=== PATIENT | female | born 1995 | race African-American/Black ===

== ENCOUNTER 2018-02-12 20:31 | Emergency (ER) | payer OTHER ==
[~2018-02-12] VITALS: Ht 160 cm; Wt 51.7 kg
[2018-02-12 20:50] VITALS: BP 110/76
--- NOTE | 2018-02-12 21:13 | Emergency Room Report ---
History of Present Illness General Chief Complaint: Abdominal Pain Source: Patient Present Illness HPI Patient is a 23-year-old female who presented after increased abdominal discomfort in the left lower quadrant. Patient ports of increased sharp pain. This did not radiate. Patient had a episode of bloody stools. The patient states is currently improved. She has not been vomiting currently but did report vomiting 2 days ago. Patient had no recent antibiotic use. Patient had not previously been have some reported bloody stools. Patient stated this is normalized. The patient denies any fever. Allergies: Coded Allergies: PENICILLINS (Verified Allergy, Unknown, 02/12/18) Patient History Past Medical History: see triage record Last Menstrual Period: 2 weeks ago Now: No Reviewed Nursing Documentation: PMH: Agreed; PSxH: Agreed Nursing Documentation-PMH Past Medical History: No Stated History Review of Systems All Other Systems: negative except mentioned in HPI Physical Exam Vital Signs Date Time Temp Pulse Resp B/P (MAP) Pulse Ox O2 Delivery O2 Flow Rate FiO2 02/12/18 20:46 98.4 82 16 110/76 98 Room Air 98.4 Sp02 EP Interpretation: reviewed, normal General Appearance: normal inspection, well appearing, no apparent distress, alert, GCS 15 Head: atraumatic ENT: normal ENT inspection, hearing grossly normal, normal voice Neck: normal inspection, full range of motion, supple, no bony tend Respiratory: normal inspection, lungs clear, normal breath sounds, no respiratory distress, no retraction, no wheezing Cardiovascular #1: regular rate, rhythm, no edema Gastrointestinal: normal inspection, normal bowel sounds, non tender, soft, no guarding, no hernia Genitourinary: no CVA tenderness Musculoskeletal: normal inspection, back normal, normal range of motion Neurologic: normal inspection, alert, oriented x3, responsive, dry cleaning checker III-XII nml as tested, DTRs symmetric, speech normal Psychiatric: normal inspection, judgement/insight normal, mood/affect normal Skin: normal inspection, normal color, no rash Medical Decision Making Diagnostic Impression: Primary Impression: Abdominal pain ER Course Patient presented for abdominal pain. Differential diagnoses included ischemic bowel, appendicitis, perforated viscus, abdominal aortic aneurysm, inferior myocardial infarction, viral gastroenteritis. Because of complexity of patient' s case laboratory testing and imaging studies were ordered. The patient was noted to have the adequate hemoglobin. Patient was noted to have have no episodes of emesis in the emergency department. Patient was advised follow-up with gastroenterology for further evaluation of rectal bleeding which may be related to hemorrhoidal bleeding. Patient was advised to return if she began having recurring bleeding or dizziness or other concerns... Labs Test 02/12/18 21:00 White Blood Count 7.2 K/UL (4.8-10.8) Red Blood Count 4.72 M/UL (4.20-5.40) Hemoglobin 12.3 G/DL (12.0-16.0) Hematocrit 37.9 % (37.0-47.0) Mean Corpuscular Volume 80 FL (80-99) Mean Corpuscular Hemoglobin 26.0 PG (27.0-31.0) Mean Corpuscular Hemoglobin Concent 32.4 G/DL (32.0-36.0) Red Cell Distribution Width 11.5 % (11.6-14.8) Platelet Count 245 K/UL (150-450) Mean Platelet Volume 6.5 FL (6.5-10.1) Neutrophils (%) (Auto) 38.0 % (45.0-75.0) Lymphocytes (%) (Auto) 49.5 % (20.0-45.0) Monocytes (%) (Auto) 7.7 % (1.0-10.0) Eosinophils (%) (Auto) 3.1 % (0.0-3.0) Basophils (%) (Auto) 1.8 % (0.0-2.0) Prothrombin Time 11.2 SEC (9.30-11.50) Prothromb Time International Ratio 1.1 (0.9-1.1) Activated Partial Thromboplast Time 27 SEC (23-33) Urine Color Pale yellow Urine Appearance Clear Urine pH 6.5 (4.5-8.0) Urine Specific [place] 1.010 (1.005-1.035) Urine Protein Negative (NEGATIVE) Urine Glucose (UA) Negative (NEGATIVE) Urine Ketones Negative (NEGATIVE) Urine Occult Blood 1+ (NEGATIVE) Urine Nitrite Negative (NEGATIVE) Urine Bilirubin Negative (NEGATIVE) Urine Urobilinogen Normal MG/DL (0.0-1.0) Urine Leukocyte Esterase Negative (NEGATIVE) Urine RBC 0-2 /HPF (0 - 2) Urine WBC 0-2 /HPF (0 - 2) Urine Squamous Epithelial Cells Few /LPF (NONE/OCC) Urine Bacteria Few /HPF (NONE) Urine HCG, Qualitative Negative (NEGATIVE) Sodium Level 139 MMOL/L (136-145) Potassium Level 3.3 MMOL/L (3.5-5.1) Chloride Level 103 MMOL/L (98-107) Carbon Dioxide Level 29 MMOL/L (21-32) Anion Gap 7 mmol/L (5-15) Blood Urea Nitrogen 13 mg/dL (7-18) Creatinine 0.8 MG/DL (0.55-1.30) Estimat Glomerular Filtration Rate > 60 mL/min (>60) Glucose Level 82 MG/DL (74-106) Calcium Level 9.1 MG/DL (8.5-10.1) Total Bilirubin 0.6 MG/DL (0.2-1.0) Aspartate Amino Transf (AST/SGOT) 20 U/L (15-37) Alanine Aminotransferase (ALT/SGPT) 23 U/L (12-78) Alkaline Phosphatase 46 U/L (46-116) Total Protein 7.9 G/DL (6.4-8.2) Albumin 4.4 G/DL (3.4-5.0) Globulin 3.5 g/dL Albumin/Globulin Ratio 1.3 (1.0-2.7) Lipase 187 U/L (73-393) Last Vital Signs Date Time Temp Pulse Resp B/P (MAP) Pulse Ox O2 Delivery O2 Flow Rate FiO2 02/12/18 20:50 98.4 16 110/76 98 Room Air 98.4 02/12/18 20:46 82 Status: improved Disposition: HOME, SELF-CARE Condition: Stable Scripts Dicyclomine Hcl* (DICYCLOMINE HCL*) 10 Mg Capsule 10 MG PO QID, #20 CAP Prov: Brain Hogan MD 02/12/18 Ciprofloxacin Hcl* (CIPROFLOXACIN HCL*) 500 Mg Tablet 500 MG ORAL Q12H, #14 TAB 0 Refills Prov: Brain Hogan MD 02/12/18 Brain Hogan MD Feb 12, 2018 21:13
[2018-02-12] MEDS ORDERED: Sodium Chloride 500ML 500 ML IV ONE (22:01)
[2018-02-12 22:08] LABS: BASOPHILS % (AUTO) 1.8 % (0.0-2.0); EOSINOPHILS % (AUTO) 3.1 % (0.0-3.0); HEMATOCRIT 37.9 % (37.0-47.0); HEMOGLOBIN 12.3 G/DL (12.0-16.0); LYMPHOCYTES % (AUTO) 49.5 % (20.0-45.0); MEAN CORPUSCULAR VOLUME 80 FL (80-99); MONOCYTES % (AUTO) 7.7 % (1.0-10.0); PLATELET COUNT 245 K/UL (150-450); RED BLOOD COUNT 4.72 M/UL (4.20-5.40); RED CELL DISTRIBUTION WIDTH 11.5 % (11.6-14.8); WHITE BLOOD COUNT 7.2 K/UL (4.8-10.8)
[2018-02-12 22:09] LABS: APPEARANCE,URINE CLEAR; BILIRUBIN, URINE NEGATIVE (NEGATIVE); COLOR,URINE PALE YELLOW; GLUCOSE, URINE (UA) NEGATIVE (NEGATIVE); KETONES,URINE NEGATIVE (NEGATIVE); LEUKOCYTE ESTERASE ,URINE NEGATIVE (NEGATIVE); NITRITE,URINE NEGATIVE (NEGATIVE); PH,URINE 6.5 (4.5-8.0); PROTEIN,URINE NEGATIVE (NEGATIVE); UROBILINOGEN,URINE NORMAL MG/DL (0.0-1.0)
[2018-02-12 22:21] LABS: INR 1.1 (0.9-1.1)
[2018-02-12 22:23] LABS: ANION GAP 7 mmol/L (5-15); BLOOD UREA NITROGEN 13 mg/dL (7-18); CALCIUM 9.1 MG/DL (8.5-10.1); CARBON DIOXIDE 29 MMOL/L (21-32); CHLORIDE 103 MMOL/L (98-107); CREATININE 0.8 MG/DL (0.55-1.30); POTASSIUM 3.3 MMOL/L (3.5-5.1); SODIUM 139 MMOL/L (136-145)
[2018-02-12 22:27] LABS: ALANINE AMINOTRANSFERASE 23 U/L (12-78); ALBUMIN 4.4 G/DL (3.4-5.0); ALBUMIN/GLOBULIN RATIO 1.3 (1.0-2.7); ALKALINE PHOSPHATASE 46 U/L (46-116); ASPARTATE AMINO TRANSFERASE 20 U/L (15-37); BILIRUBIN,TOTAL 0.6 MG/DL (0.2-1.0)
[2018-02-12] MEDS ORDERED: DICYCLOMINE HCL10 MG PO (22:39)
[2018-02-12] MEDS ORDERED: CIPROFLOXACIN500 M2 ORAL (22:39)
[2018-02-12] MEDS ORDERED: Dicyclomine HCl 10mg/5ml oral soln ORAL ONE (22:45)
[2018-02-12 23:01] VITALS: BP 102/68
[2018-02-12 23:02] VITALS: BP 110/76
== END 2018-02-12 23:10 | disposition home or self-care (01) ==
LOC: EMR 21:06
DX: R10.32 Left lower quadrant pain (principal); Z88.0 Allergy status to penicillin
CPT/HCPCS: 36415; 80053; 81003; 81025; 83690; 85025; 85610; 85730; 96360; 99283; J8499

== ENCOUNTER 2018-03-06 20:21 | Emergency (ER) | payer OTHER ==
[~2018-03-06] VITALS: Ht 162.6 cm; Wt 51.7 kg
[~2018-03-06 20:21] MED LIST: CIPROFLOXACIN500 M2 ORAL; DICYCLOMINE HCL10 MG PO
[2018-03-06 20:35] VITALS: BP 112/89
[2018-03-06] MEDS ORDERED: PREDNISONE20 MG ORAL (20:56)
[2018-03-06] MEDS ORDERED: PEPCID AC20 M2 PO (20:56)
[2018-03-06] MEDS ORDERED: BENADRYL25 MG ORAL (20:56)
--- NOTE | 2018-03-06 20:59 | Emergency Room Report ---
History of Present Illness General Chief Complaint: Allergic Reaction Source: Patient Present Illness HPI Patient presents with reports that she feels she is having an allergic reaction Patient reports that she has itching of her throat This is usually what she has before her full-blown allergy Patient also had a small red area just medial to the left upper nasal area She reports that she has makeup on it right now and therefore does not look impressive Denies any fevers or chills denies any chest pain or shortness of breath Denies any abdominal pain Patient reports that usually the perfume or other chemicals at work trigger her allergy Allergies: Coded Allergies: PENICILLINS (Verified Allergy, Unknown, 03/06/18) Patient History Past Medical History: see triage record Pertinent Family History: none Last Menstrual Period: 02/27/18 Now: No Reviewed Nursing Documentation: PMH: Agreed; PSxH: Agreed Nursing Documentation-PMH Past Medical History: No Stated History Review of Systems All Other Systems: negative except mentioned in HPI Physical Exam Vital Signs Date Time Temp Pulse Resp B/P (MAP) Pulse Ox O2 Delivery O2 Flow Rate FiO2 03/06/18 20:29 98.1 83 16 112/89 100 Room Air 98.1 Sp02 EP Interpretation: reviewed, normal General Appearance: well appearing, no apparent distress Head: normocephalic, atraumatic Eyes: bilateral eye PERRL, bilateral eye EOMI ENT: hearing grossly normal, normal pharynx, TMs + canals normal, uvula midline Neck: full range of motion, supple, no meningismus, no bony tend Respiratory: lungs clear, normal breath sounds, no rhonchi, no respiratory distress, no retraction, no accessory muscle use Cardiovascular #1: normal peripheral pulses, regular rate, rhythm, no edema, no gallop, no JVD, no murmur Gastrointestinal: normal bowel sounds, non tender, soft, no mass, no organomegaly, non-distended, no guarding, no hernia, no pulsatile mass, no rebound Musculoskeletal: normal inspection Neurologic: oriented x3, responsive, family nurse III-XII nml as tested, motor strength/ tone normal, sensory intact Psychiatric: mood/affect normal Skin: normal color, no rash, warm/dry, palpation normal Lymphatic: normal inspection, no adenopathy Medical Decision Making Diagnostic Impression: Primary Impression: Allergic reaction ER Course I cannot appreciate any obvious erythema or lesions Patient reports that she had taken a Benadryl earlier today also reports that she has makeup covering some of the raised erythema on the left facial region medial nose just lateral to the left eye Lung sounds are clear patient is provided with medications here in the ER symptomatically And will be placed on medications for home Patient reports that she has an record center specialist coming up in the next 2 weeks Last Vital Signs Date Time Temp Pulse Resp B/P (MAP) Pulse Ox O2 Delivery O2 Flow Rate FiO2 03/06/18 20:29 98.1 83 16 112/89 100 Room Air 98.1 Status: improved Disposition: HOME, SELF-CARE Condition: Stable Scripts Famotidine (PEPCID AC) 20 Mg Tablet 20 MG PO DAILY, #10 TAB Prov: João Montana DO 03/06/18 Diphenhydramine Hcl* (BENADRYL*) 25 Mg Capsule 25 MG ORAL Q6H PRN for Itching, #20 CAP Prov: João Montana DO 03/06/18 Prednisone* (PREDNISONE*) 20 Mg Tablet 20 MG ORAL BID, #8 TAB Prov: João Montana DO 03/06/18 Patient Instructions: Allergies Additional Instructions: Patient is provided with the discharge instructions notified to follow up with primary doctor in the next 2-3 days otherwise return to the er with any worsening symptoms. Please note that this report is being documented using [employer] technology. This can lead to erroneous entry secondary to incorrect interpretation by the dictating instrument. João Montana DO Mar 06, 2018 20:59
[2018-03-06 21:10] VITALS: BP 0/0
== END 2018-03-06 21:10 | disposition home or self-care (01) ==
LOC: EMR 20:56
DX: T78.40XA Allergy, unspecified, initial encounter (principal); Z88.0 Allergy status to penicillin
CPT/HCPCS: 99284; J7512

== ENCOUNTER 2018-04-11 18:58 | Emergency (ER) | payer OTHER ==
[~2018-04-11] VITALS: Ht 160 cm; Wt 49.9 kg
[~2018-04-11 18:58] MED LIST changes: +BENADRYL25 MG ORAL; +PEPCID AC20 M2 PO; +PREDNISONE20 MG ORAL
[2018-04-11 19:20] VITALS: BP 105/58
--- NOTE | 2018-04-11 19:26 | Emergency Room Report ---
History of Present Illness General Chief Complaint: Animal Bite Source: Patient Present Illness HPI Patient's dog bit her R hand today. Not break skin, but scraped and bruised. Puppy from pet store with one series of shots. Pain rated "minimal" not give number. Tetanus < 10 years. No numbness. Not . No NVD. No URI sy. R handed. No major medical problems. Friends told her to come get evaluated. 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 Period: last week Reviewed Nursing Documentation: PMH: Agreed; PSxH: Agreed Nursing Documentation-PMH Past Medical History: No Stated History Review of Systems Constitutional: Denies: fever Respiratory: Reports: see HPI Cardiovascular: Denies: edema Gastrointestinal: Denies: nausea Genitourinary: Reports: see HPI; Denies: dysuria Musculoskeletal: Reports: see HPI Skin: Reports: see HPI Hematologic/Lymphatic: Reports: see HPI Physical Exam Vital Signs Date Time Temp Pulse Resp B/P (MAP) Pulse Ox O2 Delivery O2 Flow Rate FiO2 04/11/18 19:13 98.1 78 16 107/55 99 Room Air 98.1 Sp02 EP Interpretation: reviewed, normal General Appearance: well appearing, no apparent distress Head: normocephalic, atraumatic Eyes: bilateral eye normal inspection, bilateral eye PERRL ENT: hearing grossly normal, normal voice, moist mucus membranes Neck: full range of motion, supple Respiratory: no respiratory distress, speaking full sentences Cardiovascular #1: regular rate, rhythm, edema Cardiovascular #2: 2+ radial (R) - good cap fill Gastrointestinal: normal inspection Musculoskeletal: gait/station normal, normal range of motion, swelling, other - ROM of fingers full Neurologic: alert, normal gait, grossly normal - distal neuro normal Psychiatric: mood/affect normal Skin: abrasions, hematoma - R index metacarpal Medical Decision Making Diagnostic Impression: Primary Impression: Dog bite of right hand Qualified Codes: S61.451A - Open bite of right hand, initial encounter; W54.0XXA - Bitten by dog, initial encounter ER Course Patient post domestic dog bite R hand. Diagnosis is clinical. No risk for rabies. Not break skin and no indication for systemic antibiotics at this time. Given bacitracin. Patient declines pain medicine. Patient stable for outpatient observation and treatment. Last Vital Signs Date Time Temp Pulse Resp B/P (MAP) Pulse Ox O2 Delivery O2 Flow Rate FiO2 04/11/18 19:13 98.1 78 16 107/55 99 Room Air 98.1 Status: improved Disposition: HOME, SELF-CARE Condition: Stable Scripts Bacitracin (Bacitracin) 28.4 Gm Oint...g. 1 APPLIC TOPIC BID, #10 GM Prov: Nabeel Sexton M.D. 04/11/18 Nabeel Sexton M.D. Apr 11, 2018 19:26
[2018-04-11] MEDS ORDERED: BACITRACIN15 GM TOPIC (19:28)
[2018-04-11] MEDS ORDERED: Bacitracin Oint UD TOPIC ONE (19:30)
[2018-04-11 19:45] VITALS: BP 107/55
== END 2018-04-11 19:45 | disposition home or self-care (01) ==
LOC: EMR 19:29
DX: S60.571A Other superficial bite of hand of right hand, initial encounter (principal); W54.0XXA Bitten by dog, initial encounter; Y93.89 Activity, other specified; Y92.89 Other specified places as the place of occurrence of the external cause; Z88.0 Allergy status to penicillin
CPT/HCPCS: 99282

== ENCOUNTER 2018-08-31 19:52 | Emergency (ER) | payer OTHER ==
[~2018-08-31] VITALS: Ht 162.6 cm; Wt 51.3 kg
[~2018-08-31 19:52] MED LIST changes: +BACITRACIN15 GM TOPIC
[2018-08-31 20:27] VITALS: BP 107/73
--- NOTE | 2018-08-31 20:41 | Emergency Room Report ---
History of Present Illness General Chief Complaint: Flu Like Symptoms Source: Patient Present Illness Allergies: Coded Allergies: PENICILLINS (Verified Allergy, Unknown, 08/31/18) Patient History Past Medical History: see triage record Past Surgical History: none Pertinent Family History: none Last Menstrual Period: [id number] Now: No Reviewed Nursing Documentation: PMH: Agreed; PSxH: Agreed Nursing Documentation-PMH Past Medical History: No Stated History Review of Systems All Other Systems: negative except mentioned in HPI Physical Exam Vital Signs Date Time Temp Pulse Resp B/P (MAP) Pulse Ox O2 Delivery O2 Flow Rate FiO2 08/31/18 20:16 98.2 92 16 107/73 98 Room Air Sp02 EP Interpretation: reviewed, normal General Appearance: no apparent distress, alert, GCS 15, non-toxic Head: normocephalic, atraumatic Eyes: bilateral eye normal inspection, bilateral eye PERRL ENT: hearing grossly normal, normal voice Neck: full range of motion Respiratory: chest non-tender, lungs clear, normal breath sounds, no rhonchi, no respiratory distress, no accessory muscle use, speaking full sentences, wheezing Cardiovascular #1: regular rate, rhythm Musculoskeletal: back normal, gait/station normal, normal range of motion, non- tender Neurologic: alert, oriented x3, responsive, motor strength/tone normal, sensory intact, speech normal, grossly normal Psychiatric: judgement/insight normal Skin: normal color, no rash, warm/dry, well hydrated Lymphatic: no adenopathy Medical Decision Making PA Attestation Dr. Hogan is my supervising Physician whom patient management has been discussed with. Diagnostic Impression: Primary Impression: Bronchitis ER Course 32-year-old male presents to the emergency department complaining of 10 out of 10 in severity left-sided migraine 4 days. She reports history of migraines and states that the pain that he is feeling today is consistent with how he his migraines typically feel. Patient states that medication he was prescribed is not providing relief. Patient does not know the name of the medication that he was prescribed. Patient has a MRI canceled for this Friday. He denies trauma or fall. He denies sudden onset. He reports some photophobia denies hyperacusis, nausea, vomiting. Denies fevers, chills neck pain or stiffness. Ddx considered but are not limited to URI, pneumonia, PE, strep pharyngitis, meningitis, bronchitis Vital signs: Pt.is afebrile VS are WNL H&PE are most consistent with bronchitis ORDERS: none required at this time, the diagnosis is clinical ED INTERVENTIONS: -Albuterol HHN DISCHARGE: At this time pt. is stable for d/c to home. Will provide printed patient care instructions, and any necessary prescriptions. Care plan and follow up instructions have been discussed with the patient prior to discharge. Last Vital Signs Date Time Temp Pulse Resp B/P (MAP) Pulse Ox O2 Delivery O2 Flow Rate FiO2 08/31/18 20:16 98.2 92 16 107/73 98 Room Air Disposition: HOME, SELF-CARE Condition: Stable Departure Forms: Return to Work Return to Work Date: Sep 03, 2018 Work Restrictions: None Other Restrictions: May return Sooner if Symptoms have resolved. Return to Full Activity: Sep 03, 2018 Patient Instructions: Acute Bronchitis, [id number] Additional Instructions: Take medications as directed. Follow up with a Primary Care Provider in 3-5 days, even if your symptoms have resolved. --Please review list of primary care clinics, if you do not already have a primary care provider Return sooner to ED if new symptoms occur, or current symptoms become worse. Do not drink alcohol, drive, or operate heavy machinery while taking Cough Syrup as this may cause drowsiness. - Please note that this Emergency Department Report was dictated using [employer] erector and serv[employer] technology software, occasionally this can lead to erroneous entry secondary to interpretation by the dictation equipment. Roxy Montiel Aug 31, 2018 20:41
[2018-08-31] MEDS ORDERED: Albuterol ud Inhalation HHN ONE (20:45)
[2018-08-31] MEDS ORDERED: Promethazine/Codeine 5ml UD ORAL ONE (20:45)
[2018-08-31 21:15] VITALS: BP 113/61
[2018-08-31] MEDS ORDERED: ALBUTEROL SULF8.5 GM INH (21:22)
[2018-08-31] MEDS ORDERED: TESSALON PERLE100 MG ORAL (21:22)
[2018-08-31] MEDS ORDERED: PROMETHAZINE-C118 M1 ORAL (21:22)
[2018-08-31] MEDS ORDERED: PREDNISONE20 MG ORAL (21:22)
== END 2018-08-31 21:15 | disposition home or self-care (01) ==
LOC: EMR 20:42
DX: J40 Bronchitis, not specified as acute or chronic (principal); Z88.0 Allergy status to penicillin
CPT/HCPCS: 94640; 94664; 99284

== ENCOUNTER 2018-09-02 14:24 | Emergency (ER) | payer OTHER ==
[~2018-09-02] VITALS: Ht 162.6 cm; Wt 51.3 kg
[~2018-09-02 14:24] MED LIST changes: +ALBUTEROL SULF8.5 GM INH; +PROMETHAZINE-C118 M1 ORAL; +TESSALON PERLE100 MG ORAL
[2018-09-02 14:45] VITALS: BP 110/64
--- NOTE | 2018-09-02 14:45 | NUR ---
ED Nurse Note: Pt states that she took prednisone at 11am and she developed muscle stiffness at 11pm. denies any pain or stiffness at this time. AOx4, VSS gaurav. Will cont to monitor.
--- NOTE | 2018-09-02 14:47 | Emergency Room Report ---
History of Present Illness General Chief Complaint: Allergic Reaction Source: Patient (Roxy Montiel) Present Illness HPI 23-year-old female presents to the emergency department complaining of muscle stiffness in the neck after taking prednisone this morning on 11 AM. Patient states that now her symptoms have resolved however she is not sure o other she should continue the medication or not. Pt. denies fevers, chills or swollen tender lymph nodes. Denies skin lesions/rashes. Denies Denies swelling of the lips, tongue , throat or airway. Denies wheezing, or shortness of breath. Denies recent travel, recent illness or ill contacts. denies blisters, oral lesions, or sloughing of the skin. She denies pain at this time. (Roxy Montiel) Allergies: Coded Allergies: PENICILLINS (Verified Allergy, Unknown, 08/31/18) Patient History Past Medical History: see triage record Past Surgical History: none Pertinent Family History: none Last Menstrual Period: 08/25/18 : 0 Para: 0 Reviewed Nursing Documentation: PMH: Agreed; PSxH: Agreed (Roxy Montiel) Nursing Documentation-PMH Past Medical History: No Stated History (Roxy Montiel) Review of Systems All Other Systems: negative except mentioned in HPI (Roxy Montiel) Physical Exam Vital Signs Date Time Temp Pulse Resp B/P (MAP) Pulse Ox O2 Delivery O2 Flow Rate FiO2 09/02/18 14:33 98.1 110 20 112/63 98 Room Air Sp02 EP Interpretation: reviewed, normal General Appearance: no apparent distress, alert, GCS 15, non-toxic Head: normocephalic, atraumatic Eyes: bilateral eye normal inspection, bilateral eye PERRL ENT: hearing grossly normal, normal voice Neck: full range of motion, no meningismus, no bony tend Respiratory: lungs clear, normal breath sounds, speaking full sentences Cardiovascular #1: regular rate, rhythm, tachycardia Musculoskeletal: back normal, gait/station normal, normal range of motion, non- tender Neurologic: alert, oriented x3, responsive, motor strength/tone normal, sensory intact, normal gait, speech normal, grossly normal Psychiatric: judgement/insight normal Skin: normal color, no rash, warm/dry, well hydrated (Roxy Montiel) Medical Decision Making PA Attestation Dr. Sexton is my supervising Physician whom patient management has been discussed with. (Roxy Montiel) Diagnostic Impression: Primary Impression: Medication side effect ER Course 23-year-old female presents to the emergency department complaining of muscle stiffness in the neck after taking prednisone this morning on 11 AM. Patient states that now her symptoms have resolved however she is not sure o other she should continue the medication or not. Pt. denies fevers, chills or swollen tender lymph nodes. Denies skin lesions/rashes. Denies Denies swelling of the lips, tongue , throat or airway. Denies wheezing, or shortness of breath. Denies recent travel, recent illness or ill contacts. denies blisters, oral lesions, or sloughing of the skin. She denies pain at this time. Ddx considered but are not limited to cellulitis, allergic reaction, angio edema , abscess Vital signs: Tachycardic otherwise remaining VS are WNL, pt. is afebrile H&PE are most consistent with probable medication side effect. No evidence of acute airway compromise, impending airway compromise or anaphylaxis. ORDERS: none required at this time, the diagnosis is clinical ED INTERVENTIONS: - None at this time. DISCHARGE: At this time pt. is stable for d/c to home. Will provide printed patient care instructions, and any necessary prescriptions. Care plan and follow up instructions have been discussed with the patient prior to discharge. (Roxy Montiel) Last Vital Signs Date Time Temp Pulse Resp B/P (MAP) Pulse Ox O2 Delivery O2 Flow Rate FiO2 09/02/18 14:33 98.1 110 20 112/63 98 Room Air (Roxy Montiel) Last Vital Signs Date Time Temp Pulse Resp B/P (MAP) Pulse Ox O2 Delivery O2 Flow Rate FiO2 09/02/18 15:05 98.1 100 20 110/64 97 Room Air (Nabeel Sexton MD) Disposition: HOME, SELF-CARE Condition: Stable Patient Instructions: Drug Allergy Additional Instructions: Take medications as directed BUT DISCONTINUE PREDNISONE AND TESALON PERLES Follow up with a Primary Care Provider in 3-5 days, even if your symptoms have resolved. --Please review list of primary care clinics, if you do not already have a primary care provider Return sooner to ED if new symptoms occur, or current symptoms become worse. - Please note that this Emergency Department Report was dictated using [employer] technology software, occasionally this can lead to erroneous entry secondary to interpretation by the dictation equipment. Roxy Montiel Sep 02, 2018 14:46 Nabeel Sexton MD Sep 05, 2018 02:02
[2018-09-02 15:05] VITALS: BP 110/64
--- NOTE | 2018-09-02 15:05 | NUR ---
ED Nurse Note: Pt is clear to be discharged by ERMD. Discharge paper and prescription given, pt verbalized understanding of discharge instruction. AOx4, VSS. Wristband removed. Pt ambulated out with steady gait with all belongings.
== END 2018-09-02 15:05 | disposition home or self-care (01) ==
LOC: EMR 14:52
DX: T78.40XA Allergy, unspecified, initial encounter (principal); T50.995A Adverse effect of other drugs, medicaments and biological substances, initial encounter; Y92.9 Unspecified place or not applicable; Z88.0 Allergy status to penicillin
CPT/HCPCS: 99282

== ENCOUNTER 2018-11-02 19:25 | Emergency (ER) | payer OTHER ==
[~2018-11-02] VITALS: Ht 162.6 cm; Wt 51.3 kg
[2018-11-02] MEDS ORDERED: NKM (19:31)
--- NOTE | 2018-11-02 19:47 | NUR ---
ED Nurse Note: R earache x 4 days, pain 6/10 gaurav, clear discharge noted. Aox4, VSS. Will cont to monitor.
[2018-11-02 19:48] VITALS: BP 120/75
[2018-11-02] MEDS ORDERED: CORTISPORIN EAR10 ML RIGHT EAR (20:12)
[2018-11-02] MEDS ORDERED: BACITRACIN-P28.35 GM TP (20:12)
--- NOTE | 2018-11-02 20:12 | Emergency Room Report ---
History of Present Illness General Chief Complaint: Earache Source: Patient Present Illness HPI 23-year-old female patient presents ER complaint of right-sided earache for the past 4 days. Reports bump on the outside of her ear, Reports painful to touch. Also complaining of earache symptoms. Denies hearing loss. Denies tinnitus. Denies ear drainage. Luis Fernando recent swimming. Denies fever, chest pain, SOB. Allergies: Coded Allergies: PENICILLINS (Verified Allergy, Unknown, 08/31/18) Patient History Past Medical History: see triage record Last Menstrual Period: Now: No : 0 Para: 0 Reviewed Nursing Documentation: PMH: Agreed; PSxH: Agreed Nursing Documentation-PMH Past Medical History: No History, Except For Review of Systems All Other Systems: negative except mentioned in HPI Physical Exam Vital Signs Date Time Temp Pulse Resp B/P (MAP) Pulse Ox O2 Delivery O2 Flow Rate FiO2 11/02/18 19:27 98.4 97 18 117/73 98 Room Air Sp02 EP Interpretation: reviewed, normal General Appearance: well appearing, no apparent distress, alert, GCS 15, non- toxic Head: normocephalic, atraumatic Eyes: bilateral eye normal inspection, bilateral eye PERRL ENT: hearing grossly normal, normal pharynx, no angioedema, normal voice, TMs + canals normal, uvula midline, moist mucus membranes, other - Right ear: Mild erythema in ear canal, pain with ear pulling, TM intact, no effusion, no TM erythema or edema Neck: full range of motion, no meningismus, no bony tend Respiratory: lungs clear, normal breath sounds, no rhonchi, no respiratory distress, no accessory muscle use, no wheezing, speaking full sentences Cardiovascular #1: regular rate, rhythm, no edema Cardiovascular #2: 2+ radial (R), 2+ radial (L) Musculoskeletal: back normal, digits/nails normal, gait/station normal, normal range of motion, non-tender Neurologic: alert, oriented x3, responsive, risk and insurance manager III-XII nml as tested, motor strength/tone normal, sensory intact Psychiatric: mood/affect normal Skin: abrasions - Small abrasion in auricle of right ear, no surrounding erythema or edema Medical Decision Making PA Attestation Dr. Martinez is my supervising Physician whom patient management has been discussed with. Diagnostic Impression: Primary Impression: Otitis externa Additional Impression: Abrasion ER Course Pt presents to ED c/o ear pain. DDX considered but are not limited to rhinitis, sinusitis, otitis media, otitis externa, cellulitis, mastoiditis, cerumen impaction. Low suspicion for mastoiditis, no swelling or erythema noted posterior to ear, no TTP. VITAL SIGNS are WNL, patient is afebrile. ER COURSE: Exam shows nonerythematous TM without effusion, no rupture, mildly erythematous and edematous ear canal, pain with ear pulling. likely otitis externa. Continue taking medications as previously instructed. Avoid swimming. do not use q-tips. Small abrasion in auricle of ear, no drainage, no surrounding erythema or edema , no abscess requiring drainage. Keep clean and dry. ER precautions given. DISCHARGE: -Rx provided for Neomycin/polmyxin B Rx provided for Bacitracin At this time pt is stable for d/c to home. resting comfortably chest, nontoxic appearing. Patient to take medications as instructed Will provide with patient care instructions and any necessary prescriptions. Care plan and follow-up instructions provided. Patient instructed to follow-up with primary care in 3 - 5 days. Patient provided with list of clinics to establish care if unable to contact current PCP. Patient questions asked and answered. ER precautions given. Patient instructed to return to ER immediately for any new or worsening of symptoms including but not limited to increasing SOB, persistent fever. - Please note that this Emergency Department Report was dictated using [employer] educ[employer] technology software, occasionally this can lead to erroneous entry secondary to interpretation by the dictation equipment. Last Vital Signs Date Time Temp Pulse Resp B/P (MAP) Pulse Ox O2 Delivery O2 Flow Rate FiO2 11/02/18 19:48 98.4 88 19 120/75 98 Room Air Status: improved Disposition: HOME, SELF-CARE Condition: Stable Scripts Bacitracin/Polymyxin B Sulfate (BACITRACIN-POLYMYXIN OINTMENT) 28.35 Gm Oint...g. 1 APPLIC TP BID, #28 GM Prov: Jam Evans 11/02/18 Neomycin/Polymyxin B Sulf/Hc* (CORTISPORIN EAR SOLUTION*) 10 Ml Solution 4 DROP RIGHT EAR QID, #10 ML 0 Refills Prov: Jam Evans 11/02/18 Patient Instructions: Abrasion, [id number], Otitis Externa, [id number] Additional Instructions: Followup with primary care provider in 3 -5 days. Request referral to ENT. Avoid swimming, does not use Q-tips in ear. Take medications as directed. Patient questions asked and answered. ER precautions given, patient instructed to return to ER immediately for any new or worsening of symptoms. Jam Evans Nov 02, 2018 20:12
[2018-11-02 20:19] VITALS: BP 118/72
--- NOTE | 2018-11-02 20:19 | NUR ---
ER DISCHARGE NOTE: Patient is cleared to be discharged per ERMD, pt is aox4, on room air, with stable vital signs. pt was given dc and prescription instructions, pt was able to verbalize understanding, pt id band removed without complications. pt is able to ambulate with steady gait. pt took all belongings.
== END 2018-11-02 20:19 | disposition home or self-care (01) ==
LOC: EMR 20:01
DX: H60.91 Unspecified otitis externa, right ear (principal); S00.411A Abrasion of right ear, initial encounter; X58.XXXA Exposure to other specified factors, initial encounter; Y92.9 Unspecified place or not applicable; Z88.0 Allergy status to penicillin
CPT/HCPCS: 99282

== ENCOUNTER 2020-10-13 09:51 | Emergency (ER) | payer OTHER ==
[~2020-10-13] VITALS: Ht 160 cm; Wt 49.9 kg
[~2020-10-13 09:51] MED LIST changes: +BACITRACIN-P28.35 GM TP; +CORTISPORIN EAR10 ML RIGHT EAR; +NKM
[2020-10-13 10:25] VITALS: BP 130/70
[2020-10-13] MEDS ORDERED: Acetaminophen 500mg (ES) tab ORAL ONE (10:30)
--- NOTE | 2020-10-13 11:10 | Emergency Room Report ---
History of Present Illness General Chief Complaint: Head Injury Source: Patient Present Illness HPI 25-year-old female with no prior medical history presents to the emergency department with chief complaint of scalp pain after hitting her head on a refrigerator door yesterday. Patient states that she was bending over to put some items into her refrigerator and somehow the refrigerator door opened up and hit her. She denies any loss of consciousness, vision changes, nausea, vomiting, diarrhea, difficulty walking, neck pain, back pain, chest pain, shortness of breath, slurred speech, otorrhea, photophobia or any other issues. Denies any recurrent injury. The patient's symptoms were gradual onset, severity was moderate, duration since 1 day. Quality: Aching No alleviating factors. Patient has not tried any medication at home because "I am not into taking meds". Past medical history: Denies Past surgical history: Denies Smoking: Occasional Alcohol use: Occasional Drug use: Denies Review of systems: CONST: No fevers or chills, No night sweats PULMONARY: No productive cough, No shortness of breath CARDIAC: No chest pain, No palpitations GI: No vomiting, No diarrhea , No melena_or_BRBPR : No dysuria, No hematuria, No discharge NEURO: No new_focal_weakness_or_numbness, No confusion, No vision changes 14 point Review of Systems is otherwise negative except per HPI Physical Exam: GENERAL: Awake_alert_ nontoxic, no acute distress Spo2 98% on RA -normal EYES: No nystagmus. No hyphema. No entrapment. Extraocular muscles are intact. Conjunctivae clear. Lids without swelling ENT: No nasal septal hematoma. No deformity. External nose and ear normal_in_appearance. Oropharynx clear. Head_atraumatic, Moist_oral_mucosa NECK: No JVD. No meningismus. No thyromegaly. Supple. Trachea midline. No midline cervical, thoracic, lumbar spinal step-off or deformity. RESP: Normal respiratory effort. Symmetric rise. No stridor. Clear_to_auscultation_No_rales_No_wheezes CARDIAC: Regular rate and regular rhytm. No_significant pedal edema. ABDOMEN: Soft. Nondistended. Nontender_No_rebound_or_guarding. MSK: Normal muscle tone, without rigidity. Extremities without asymmetric deformity or swelling. SKIN: Warm and dry. No visible cyanosis or pallor NEUROLOGIC: Alert, oriented x3. Motor_and_sensation_grossly_intact. No truncal ataxia. Gait_normal. No pronator drift. Negative Romberg. No ataxia. Balanced zoila with smooth turns. Normal bpjynh-sw-[id number] bilaterally. Negative normal rapid alternating movement Psych: Normal mood and affect, normal judgment and insight - COORDINATION OF CARE Case was discussed with: Patient Any imaging that were ordered were interpreted as part of the medical decision making: Medical Decision Making/Plan: Differential diagnosis includes closed head injury, scalp contusion, vs less likely skull fracture, intracranial bleeding, among others. Patient neurologically intact, afebrile, with no abnormal cerebellar signs. CT scans of the head were immediately obtained and showed no evidence of any emergent findings. There was no evidence of any wounds that required repair Pain was controlled with Tylenol. The patient is non-toxic, well appearing and significantly improved with observation and serial exams in the emergency department. The patient is neurologically intact and able to ambulate, no evidence of spinal cord injury. Patient is stable for discharge home and follow up with their regular doctor in 1-2 days. Close head injury precautions were discussed. Instructed patient to avoid vigorous physical activity/reinjury/blunt head trauma to prevent neurologic sequelae, rarely . She verbalizes her understanding. Off work note given x3 days. Allergies: Coded Allergies: PENICILLINS (Verified Allergy, Unknown, 08/31/18) COVID-19 Screening Contact w/high risk pt: No Experienced COVID-19 symptoms?: No COVID-19 Testing performed DISTRIBUTION CENTER ASSISTANT: No Patient History Last Menstrual Period: 09/30/20 Now: No Nursing Documentation-[facility] Past Medical History: No Stated History Physical Exam Vital Signs Date Time Temp Pulse Resp B/P (MAP) Pulse Ox O2 Delivery O2 Flow Rate FiO2 10/13/20 10:25 98.1 92 18 130/70 (90) 98 Room Air Sp02 EP Interpretation: reviewed, normal Medical Decision Making Diagnostic Impression: Primary Impression: Concussion Additional Impression: Acute head injury CT/MRI/US Diagnostic Results CT/MRI/US Diagnostic Results : Impression CT HEAD FINDINGS: There is normal symmetry and normal diehl-white differentiation. There is no acute large territory cortical infarct, hemorrhage, mass effect or shift. Ventricles and cisterns as well as brainstem and posterior fossa appear unremarkable. The sellar region is normal. Sinuses, mastoid air cells and bony calvarium appear intact. IMPRESSION: NO ACUTE INTRACRANIAL ABNORMALITY. Reevaluation Time: 11:30 Last Vital Signs Date Time Temp Pulse Resp B/P (MAP) Pulse Ox O2 Delivery O2 Flow Rate FiO2 10/13/20 10:43 Room Air 10/13/20 10:25 98.1 92 18 130/70 (90) 98 Status: improved Disposition: HOME, SELF-CARE Admit Decision Time: 11:30 Condition: Stable Referrals: [facility] Patient Instructions: Concussion, Adult, [id number] Additional Instructions: Instructions for patient/claims investigator: Follow up with your physician in 1-2 days. Follow-up with your doctor sooner if your condition requires a more timely clinical reevaluation. Return to the emergency department immediately if you feel that your condition is worsening or if you have any new or concerning symptoms. Review your discharge instructions and take any prescriptions given as instructed. Avoid repeat head injury to prevent long-term neurologic complications. [facility] PROVIDES FREE OR LOW-COST HEALTH SERVICES TO PEOPLE WHO CAN SHOW PROOF THAT THEY LIVE IN [facility]. TO FIND MORE CLINICS PARTNERED WITH THE [facility] TO PROVIDE SERVICE, PLEASE CALL . Aliza Cabrera D.O. Oct 13, 2020 11:10
--- NOTE | 2020-10-13 11:15 | Diagnostic Imaging Report ---
EXAM: CT CT Head no Contrast INDICATION: Headache. TECHNIQUE: Axial images of the brain were obtained with subsequent sagittal and coronal reformats. All CT scans at this facility are performed using dose modulation techniques as appropriate to a performed exam including the following: automated exposure control with adjustment of the mA and/or kV according to patient size. COMPARISON STUDY: None. RADIATION DOSE: CTDIvol: 53.4 mGy DLP: 992.1 mGy-cm Dose information generated by the CT scanner is available in PACS. FINDINGS: There is normal symmetry and normal diehl-white differentiation. There is no acute large territory cortical infarct, hemorrhage, mass effect or shift. Ventricles and cisterns as well as brainstem and posterior fossa appear unremarkable. The sellar region is normal. Sinuses, mastoid air cells and bony calvarium appear intact. IMPRESSION: NO ACUTE INTRACRANIAL ABNORMALITY.
== END 2020-10-13 11:26 | disposition home or self-care (01) ==
LOC: EMR 10:43
DX: S06.0X0A Concussion without loss of consciousness, initial encounter (principal); W22.8XXA Striking against or struck by other objects, initial encounter; Y93.89 Activity, other specified; Y92.010 Kitchen of single-family (private) house as the place of occurrence of the external cause; Z88.0 Allergy status to penicillin
CPT/HCPCS: 70450; Z7502; 99284